=== PATIENT | male | born 1955 | race Caucasian/White ===

== ENCOUNTER 2019-05-02 05:32 | Day surgery (SDC) | payer OTHER, SELFPAY ==
--- NOTE | 2019-04-29 13:12 | PCM.HP.BLA ---
History and Physical Date of Admission: 04/29/19 HISTORY AND PHYSICAL ? Dwight Newton 1955 ? ? REFERRING PHYSICIAN: ??Brayan Varela, DO ? CHIEF COMPLAINT: ??Consult (Consult bilateral inguinal hernia) ? HPI: Dwight is a 63 year old male with a complaint of bulges in his right inguinal region and left inguinal region. ?The patient notes discomfort in this area with lifting and moving. ?The symptoms have increased, over the past 1 month. ? The patient notes no symptoms of bowel obstruction and denies nausea or vomiting. The patient was seen by his primary care physician ?who felt the patient has a hernia. ?Dwight was referred for evaluation and treatment. ? The patient is being seen by me today at the request of DrKj Varela for my opinion and advice regarding bilateral inguinal hernias.? ? He was still smoking at time of his previous evaluation on November 23, 2018. ?The patient states he has quit smoking for the past 2 months. ?He is now ready to have the hernias?repaired. ? ? PAST?MEDICAL?HISTORY PAST MEDICAL HISTORY Diagnosis Date ? Diverticular disease ? ? ED (erectile dysfunction) ? ? Essential hypertension ? ? Family history of colon cancer ? ? History of DVT of lower extremity ? ? LVH (left ventricular hypertrophy) ? ? Paroxysmal SVT (supraventricular tachycardia) (HCC) ? ? Sciatica ? ? Smoking ? ? ? PAST?SURGICAL?HISTORY PAST SURGICAL HISTORY Procedure Laterality Date ? COLONOSCOPY ? 2008 ? due in 2011 ? ? CURRENT?MEDICATIONS ? Current Outpatient Medications: buPROPion SR (ZYBAN SR; WELLBUTRIN SR) 150 mg 12 hr tablet Take 150 mg by mouth. carvedilol (COREG) 3.125 mg tablet Take 3.125 mg by mouth twice daily. sildenafil (VIAGRA) 100 mg tablet Take 100 mg by mouth. aspirin 81 mg chewable tablet Take 81 mg by mouth once daily. ? No current facility-administered medications for this visit.? ? ALLERGIES:?Patient has no known allergies. ? PERSONAL HISTORY:? SOCIAL?HISTORY Social History ??Socioeconomic History ?Marital status: Single ?Spouse name: Not on file ?Number of children: Not on file ?Years of education: Not on file ?Highest education level: Not on file ??Social Needs ?Financial resource strain: Not on file ?Food insecurity - worry: Not on file ?Food insecurity - inability: Not on file ?Transportation needs - medical: Not on file ?Transportation needs - non-medical: Not on file ??Occupational History ?Not on file ??Tobacco Use ?Smoking status: Former Smoker ?Start date: 03/26/1986 ?Quit date: 02/10/2019 ?Years since quittin.1 ?Smokeless tobacco: Never Used ??Substance and Sexual Activity ?Alcohol use: Yes ?Alcohol/week: 4.5 oz ?Types: 3 Cans of Beer (12oz) per week ?Drug use: Not on file ?Sexual activity: Not on file ??Other Topics ?Concerns: ?Not on file ??Social History Narrative ?Not on file ? FAMILY HISTORY:? FAMILY?HISTORY FAMILY HISTORY Problem Relation Age of Onset ? Heart disease Mother ? ? Colon Cancer Mother ? ? COPD Mother ?smoker ? Depression Brother ?suicide 28 ? Alcohol/Drug Brother ? ? REVIEW OF SYMPTOMS: ??The review of systems data was entered by the nurse and reviewed by me ? Nursing Notes: Edu Owens LPN ?04/12/2019 ?4:16 PM ?Signed REVIEW OF SYSTEMS: ?General:???The patient NOTES fatigue, NOTES weight loss, denies weight gain, denies feeling hot, and denies feelings of cold. ?Eyes: ?The patient denies glaucoma, denies eye injury/surgery, wears glasses or contacts. ?Ear/Nose/Throat: ?The patient denies allergies, denies hayfever, denies ear infections, and denies bloody noses. ?Cardiovascular: ?The patient denies chest pain, denies heart disease, NOTES high blood pressure,denies cardiac stent, denies prior heart attack, NOTES irregular heart beat, denies high cholesterol, ?denies poor circulation, denies heart failure, other cardiac issues, denies claudication, denies cold feet, denies peripheral arterial stent. ?Respiratory: ?The patient denies tuberculosis, denies pneumonia, NOTES frequent cough, denies pulmonary embolism, NOTES shortness of breath, and denies coughing up blood. ?Gastrointestinal: ?The patient denies difficulty swallowing, denies acid reflux, denies ulcers, denies vomiting, denies jaundice/hepatitis, denies gallbladder problems, denies black or tarry stools, denies hemorrhoids, denies bleeding from rectum, NOTES diverticulitis, denies constipation, denies diarrhea, denies loss of stool control, and NOTES hernias. ?Kidney/Bladder: ?The patient denies kidney stones, denies urine infections, and denies bloody urine. ?Skin: ?The patient denies a history of skin cancer, denies bleeding/changing moles, and denies a history of skin rash. ?Neurologic: ?The patient denies a history of epilepsy/convulsions, denies headaches, denies head/spinal injuries, and denies stroke/TIA. ?Psychiatric: ?The patient denies psychiatric medications, denies depression, and denies voices, denies substance abuse. ?Endocrine: ?The patient denies thyroid disorders, denies diabetes, and denies hormonal problems. ?Hematologic: ?The patient denies a history of bruising, denies bleeding, and denies anemia, denies blood clots. ?Infections: ?The patient denies a history of measles and mumps, denies rheumatic fever, and denies sexually transmitted diseases. ?Musculoskeletal: ?The patient denies back pain/injury, denies back problems, NOTES sciatica, denies knee/foot trouble, denies arthritis, or denies gout. ? ? ? PHYSICAL EXAMINATION: ? General: ?The patient is 63 year old male, well nourished, well hydrated in no acute distress. ?The patient is oriented to time, place, and person. ? VITALS:?Blood pressure 158/102, pulse 69, temperature 36.6 ?C (97.8 ?F), weight 84.8 kg (187 lb), SpO2 95 %.?Body mass index is 24.67 kg/m?.? ? HEENT: ?Normal cephalic, ataumatic, pupils are equally round, sclera are anicteric, mucous membranes are moist, oropharynx is clear. ?Neck has no masses, asymmetry or lymphadenopathy. ?Thyroid is unremarkable. ? Respiratory: ?Coarse to auscultation with few wheezes. ?Normal respiratory excursion and pattern. ? Cardiac: ?Examination is regular rate and rhythm. ? Abdominal exam: ?Soft, nontender, ?with no palpable masses. ?No hepatosplenomegaly. ?A small nonreducible umbilical hernia and moderate reducible right and left inguinal hernias ? Rectal exam: ?exam deferred ? Extremities: ?no clubbing, cyanosis or edema. ?No adenopathy. ? Other: ? ? LABORATORY VALUES: As Noted ? RADIOLOGIC STUDIES: ?As Noted ? Assessment ? IMPRESSION: bilateral inguinal hernias, umbilical hernia, Tobacco use ? PLAN: ??My plan is to perform a laparoscopic bilateral inguinal hernia repair with mesh and?laparoscopic ventral hernia repair with mesh. ?The planned surgical procedure was discussed extensively with the patient. ?The risks, benefits, anticipated outcomes and possible complications were mentioned. ?Dwight undersands that all hernia repair surgery has a chance of recurrence and/or chronic post operative pain. ?My staff has also explained the procedure in understandable terms and the patient was given the option to take printed material concerning the planned procedure. ?The patient had the opportunity to ask questions concerning the planned procedure. ?The patient freely consents to the planned procedure. ? ? A letter was sent to Dr. Brayan Varela indicating the above finding for this patient. ? Diagnoses:?(K42.9) Umbilical hernia without obstruction or gangrene ?(primary encounter diagnosis) (K40.20) Bilateral inguinal hernia without obstruction or gangrene, recurrence not specified ? Anticipated CPT Code: laparoscopic bilateral inguinal hernia repair with mesh - 47867 x 2-000 laparoscopic ventral hernia repair - 80034-423 ? Anticipated Anesthetic: General ? Patient weight:??Blood pressure 158/102, pulse 69, temperature 36.6 ?C (97.8 ?F), weight 84.8 kg (187 lb), SpO2 95 %.?BMI: ?Body mass index is 24.67 kg/m?. ? Planned antibiotic: Ancef 2gm IVPB manager credit collections to OR ? SCDs needed - Yes ? Return to Clinic: The patient is instructed to follow-up with me?1 week postoperatively. ? Pavan Mendez MD
[2019-05-02] VITALS (9 sets, daily range): BP systolic 112–127; BP diastolic 75–94; PULSE 74–86; RESP 16–18; TEMP 36.4–37; O2SAT 92–99; BMI 24.0
[2019-05-02] MEDS: Cefazolin 2 GM in 0.9% Normal Saline 100 ML IV (07:13)
--- NOTE | 2019-05-02 07:15 | HERN_PTH ---
PATIENT: CORDELIA RODRIGUEZ LOC: [facility] [place] U#:[id number] AGE/SX: 63/M ROOM: RE05/02/[address]: Dr. Pavan Mendez MD : 1955 BED: DIS: 05/02/2019 SPEC #: [id number] RECD: 05/02/19 10:23 STATUS: ROLANDO KRISTINE #: [id number] CIPRIANO: 05/02/19 07:[address]: Pavan Mendez DEPT: SURGICAL PATHOLOGY RECD BY: Alda Mobley ENTERED: 05/02/19 14:50 SP TYPE: Hernia OTHR DR: DO Brayan Urban Tissues: HERNIA Procedures: Surgery Specimen Level II HEADER OPERATION: Laparoscopic inguina hernia repair, umbilical hernia PRE-OP DIAGNOSIS: Bilateral inguinal hernias, umbilical hernia TISSUE SUBMITTED: Umbilical hernia contents MICROSCOPIC DIAGNOSIS Umbilical hernia contents, excision: Fibrofatty tissue with focal fibrosis and vascular congestion. AM:mercy 05/03/19 MICROSCOPIC DESCRIPTION Slides are reviewed. GROSS DESCRIPTION Received in fixative is one container labeled with the patient's name and designated umbilical hernia contents. The specimen consists of three variable sized pieces of michele-yellow adipose tissue measuring in aggregate 4.5 x 3 x 1 cm. No mass lesion is identified. Product Safety Manager sections are submitted in one cassette. / SJ:mercy 05/02/19 TC:5 CPT: 48161
--- NOTE | 2019-05-02 08:59 | PCM.OPRPT ---
Report of Operation Date of Procedure: 05/02/19 Pre-Operative Diagnosis: bilateral inguinal, umbilical hernia Post-Operative Diagnosis: bilateral inguinal larger left indirect, smaller right indirect, umbilical hernia Surgery/Procedure Performed:: laparoscopic bilateral inguinal and laparoscopic ventral hernia - Bard 3D Max Large left - Ref [id number] lot [id number] exp 12/23/23 Bard Medium 3Dmax Ref [id number] 09/22/23, Medium (6.4cm) Ventralex ST - Ref [id number] Lot [id number] 02/20/2021 food preparation worker: Peter Rueda Type of Anesthesia:: General Anesthesiologist: Misbah Khanna - ASA2 Drains: Urine - 125 Estimated Blood Loss (mL): 20 Fluids Replaced: 1000 Description of Procedure: The patient was brought to the operating suite. Sign in was performed verifying patient, site, procedure, position, and DVT prophylaxis with SCDs. Patient received 2 g Ancef antibiotic prophylaxis. Following induction of general anesthetic, a escalante catheter was placed. The patient?s abdomen was prepped and draped in the usual fashion. Timeout was performed verifying patient, site, position. Local anesthetic was injected below the umbilicus. Incision made and dissection carried down to the umbilical root fascia. 2 stay sutures were placed. Incision made in the fascia, the peritoneum entered under direct visualization. A 10 mm Willis trocar was inserted and secured with the stay sutures. Pneumoperitoneum to 15 mmHg was insufflated. Visual inspection revealed larger indirect left inguinal hernia with colon adherent to the internal ring and a smaller right indirect inguinal hernia and a small umbilical hernia . 2 5mm ports were placed in the standard position. left side is addressed first. The peritoneum was incised and prepared and the dissection was carried out along the space down to the preperitoneal space of the inguinal canal. Dissection was carried down identifying the pubic tubercle, Tye?s ligament, the inferior epigastric vessels, and lateral dissection. A moderate defect was noted in the indirect space. Following this, a Bard 3-D Max mesh large size was placed in the left inguinal space. This was secured with a pro-tack tacker along Tye?s ligament. The mesh was then further secured over the transversus arch using a secure strap absorbable tacker. Following this, the peritoneum was closed with a running 30V lock suture sewn laparoscopically. The right side was then addressed. The peritoneum was incised and prepared and the dissection was carried out along the space down to the preperitoneal space of the inguinal canal. Dissection was carried down identifying the pubic tubercle, Tye?s ligament, the inferior epigastric vessels, and lateral dissection. A moderate defect was noted in the indirect space. Following this, a Bard 3-D Max mesh medium size was placed in the right inguinal space. This was secured with a pro-tack tacker along Tye?s ligament. The mesh was then further secured over the transversus arch using a secure strap absorbable tacker. Following this, the peritoneum was closed with a running 30V lock suture sewn laparoscopically. Dissection of the hernia sac at the level the umbilicus and then excess surrounding preperitoneal fat was dissected to allow flat placement of the intra-abdominal mesh. The hernia sac tissue was excised and sent to pathology. A 6.[address] mesh placed intra-abdominally. A Prolene suture was placed through the superior aspect of the mesh brought up with a Granee needle to just the upper midline allowing good overlap between the edge of the mesh and the superior aspect of the defect. Prolene sutures were placed transfixing the fascia at 12 , 6 , 3 and 9:00 using a GraNee needle . The mesh was then tacked using a secure strap tacker around the outer rim of the mesh and then in multiple locations in the inner mesh 5 ports were removed under direct visualization with no signs of bleeding. Pneumoperitoneum was released. The Willis trocar was removed. The umbilical fascial suture was secured area did skin was closed with interrupted 4-0 Monocryl subcuticular sutures. Steri-Strips and bandages were applied. The patient was brought to recovery room in stable condition. Grafts/Implants Used: see above
[2019-05-02] MEDS: Bupivacaine 0.25% 30 ML Vial (09:02)
--- NOTE | 2019-05-02 09:17 | DCINST_ITS ---
Discharge Diet: Light diet - advance as tolerated Discharge Activity: Return to Normal Activity, May Drive - when you are no longer taking narcotic pain medications., May Shower - with the bandage in place 1-2 days after surgery. Lifting Restrictions: 20 pounds for 8 weeks. Additional Activity Instructions:: Climbing stairs is fine, walking is encouraged. Sitting in bed may be uncomfortable. Sitting up using your lateral muscles (sitting up sideways) is usually more comfortable. Do not drive, work heavy equipment of sign legal documents for 24 hours. If your hernia repair was an ingunial repair, you may have scrotal swelling, an ice pack and/or athletic support can provide more comfort. Pain medications may cause nausea, you should typically eat light foods as you take your pain medications. Pain medications may also cause constipation. If you have difficulty with this, discuss with your doctor. Call your doctor if your incision/area has: Continuous Slow Oozing, Sudden Increased Bleeding, Increased Pain/ Swelling, Increased Redness, Foul Smelling Discharge Call your doctor if you observe: Fever of 101 or Higher Suture Line Care: Avoid Pulling/Pushing, Avoid Pinching/Bending Additional Dressing/Incision Instructions:: Leave the operative bandage on for 2-3 days. When you remove the bandage, leave the steri-strips on place until your follow up appointment or they fall off. Allergies/Adverse Reactions: Allergies No Known Allergies Allergy (Verified 05/02/19 06:21) Medications to take at Discharge Carvedilol [Coreg (Beta Ale)] 3.125 mg PO BID 04/25/19 Umeclidinium Brm/Vilanterol Tr [Anoro Ellipta 62.5-25 Mcg INH] 1 ea IH DAILY 04/25/19 Wellbutrin tablets 300 mg PO DAILY 04/25/19 Oxycodone HCl/Acetaminophen [Percocet 5/325] 1 tab PO Q4H PRN PRN 5 Days #20 tab 05/02/19 The following prescriptions were given: Oxycodone HCl/Acetaminophen [Percocet 5/325] 1 tab PO Q4H PRN PRN 5 Days #20 tab PRN Reason: Pain Prescription Printed Primary Care Physician: Brayan Vraela [Primary Care Provider] - Test Results: Test results from this visit will be discussed in further detail at your follow- up appointment, if applicable. Please Follow Up With: Pavan Mendez MD - [phone] When: Plan to have a follow up appointment in 7 days. Call to schedule.
== END 2019-05-02 11:40 | disposition home or self-care (01) ==
LOC: SDC 05:34 → AC 05:36
PROVIDERS: Family Provider Family Medicine; PCP Family Medicine; Referring Provider Surgery; Visit Provider Surgery
PROC: (CPT 49650; principal; 2019-05-02 06:55)
DX: K40.20 Bilateral inguinal hernia, without obstruction or gangrene, not specified as recurrent (principal); I10 Essential (primary) hypertension; N52.9 Male erectile dysfunction, unspecified; J44.9 Chronic obstructive pulmonary disease, unspecified; Z86.718 Personal history of other venous thrombosis and embolism; Z87.891 Personal history of nicotine dependence; Z79.82 Long term (current) use of aspirin; Z79.899 Other long term (current) drug therapy
CPT/HCPCS: 49650; 88302; C1781; J7120; J2405

== ENCOUNTER → 2021-07-19 16:55 | Outpatient (CLI) | payer OTHER, SELFPAY ==
--- NOTE | 2021-07-19 16:58 | CT_ITS ---
STUDY: CT PELVIS WITHOUT CONTRAST REASON FOR EXAM: Male, 65 years old. right groin pain RADIATION DOSAGE (If Supplied By Facility): CTDIvol = ( 11.56 ) mGy, DLP = ( 402.67 ) mGycm TECHNIQUE: Transaxial imaging of the pelvis was performed with oral contrast, and without intravenous administration of contrast material. Individualized dose optimization techniques were used for this CT. COMPARISON: None. FINDINGS: Normal urinary bladder. Normal visualized small intestine. There are multiple colonic diverticula of the sigmoid colon consistent with chronic diverticulosis. There is no pelvic fluid. There is no pelvic mass lesion or lymphadenopathy. Normal visualized pelvic arteries. A right inguinal hernia is identified (image 79 series 2, image 47 series 103) containing fat, however, there is diffuse soft tissue induration throughout the hernia sac. There are also operative changes of the left inguinal canal with lesser amount of soft tissue density extending into the inguinal region. No discrete focal fluid collection is identified. Both testicles are somewhat high riding (image 53 series 103). There are diffuse degenerative changes of the visualized lumbar spine. CT/Pelvis without IV Contrast IMPRESSION: 1. Right fat containing inguinal hernia containing soft tissue induration. May be sequela of injury/soft tissue contusion versus postoperative fibrosis (given history). Comparison study would be useful. 2. Operative changes of the left inguinal region with soft tissue induration likely postoperative fibrosis. 3. High riding bilateral testicles. Electronically Signed: Avni Yoon MD ([place]) at 17:01 EDT , Service support ,
== END ==
PROVIDERS: PCP Family Medicine; Referring Provider Surgery; Visit Provider Surgery
DX: R10.31 Right lower quadrant pain (principal)
CPT/HCPCS: 72192